=== PATIENT | male | born 1965 | race Caucasian/White ===

== ENCOUNTER 2022-08-04 18:40 | Emergency (ER) | payer MEDICAID ==
[~2022-08-04] VITALS: Ht 175.3 cm; Wt 81.4 kg
[2022-08-04] MEDS ORDERED: GABA-1181 PO (19:16)
[2022-08-04] MEDS ORDERED: BICT1TAB PO (19:16)
[2022-08-04] MEDS ORDERED: KETOROLAC TROMETHAMINE 30 MG/ML VIAL IM ONE (19:45)
[2022-08-04] MEDS ORDERED: ACETAMINOPHEN 500 MG TABLET PO ONE (19:45)
[2022-08-04] MEDS ORDERED: LIDOCAINE 5% TRANSDERMAL PATCH TD ONE (19:45)
[2022-08-04 21:14] VITALS: BP 129/71; PULSE 79; RESP 18; TEMP 97.3
== END 2022-08-04 21:27 | disposition home or self-care (01) ==
LOC: EMS 18:42
DX: G89.29 Other chronic pain (principal); M54.9 Dorsalgia, unspecified; K75.9 Inflammatory liver disease, unspecified; F17.210 Nicotine dependence, cigarettes, uncomplicated
CPT/HCPCS: 99283; 96372; J1885